=== PATIENT | female | born 1985 | race Caucasian/White ===

== ENCOUNTER 2016-07-30 19:11 | Emergency (ER) | payer MEDICAID ==
[~2016-07-30] VITALS: Ht 162.6 cm; Wt 73.0 kg
[~2016-07-30 19:11] MED LIST: BENZ1LOZ52 MM; CIPR500S2 PO; D-ME473S2 PO; IBUP-1542 PO; TRAM50TA2 PO
[2016-07-30 19:15] VITALS: Ht 162.6 cm; Wt 73.0 kg
[2016-07-30] MEDS ORDERED: SOD CHLORIDE 0.9% 1,000 ML IV STA (19:49)
[2016-07-30] MEDS ORDERED: METOCLOPRAMIDE 10 MG INJ IV ONE (20:00)
[2016-07-30 20:20] LABS: ADD SCAN DIFF NO
[2016-07-30 20:21] LABS: BASOPHILS % 0.3 % (0.0-2.0); EOSINOPHILS % 0.4 % (0.0-7.0); HEMOGLOBIN 13.6 g/dl (12.0-16.0); LYMPHOCYTES # 2.2 10^3/ul (0.8-2.9); LYMPHOCYTES % 20.1 % (15.0-51.0); MEAN CORPUSCULAR HEMOGLOBIN 29.5 pg (29.0-33.0); MEAN CORPUSCULAR VOLUME 86.8 fl (82.0-101.0); MEAN PLATELET VOLUME 9.2 fl (7.4-10.4); MONOCYTE # 0.4 10^3/ul (0.3-0.9); NEUTROPHIL # 8.1 10^3/ul (1.6-7.5); NEUTROPHILS % 74.8 % (39.0-77.0); PLATELET COUNT 206 10^3/UL (140-415); RED BLOOD COUNT 4.61 10^6/ul (4.20-5.40); RED CELL DISTRIBUTION WIDTH 12.4 % (11.5-14.5); WHITE BLOOD COUNT 10.9 10^3/ul (4.8-10.8)
[2016-07-30 20:32] LABS: UR BILIRUBIN (Dip) NEGATIVE (NEGATIVE); UR BLOOD (Dip) NEGATIVE (NEGATIVE); UR CLARITY CLEAR (CLEAR); UR COLOR YELLOW (YELLOW); UR GLUCOSE (Dip) NEGATIVE (NEGATIVE); UR KETONES (Dip) 15 (NEGATIVE); UR LEUKOCYTE ESTERASE (Dip) NEGATIVE (NEGATIVE); UR NITRITE (Dip) NEGATIVE (NEGATIVE); UR UROBILINOGEN (Dip) 0.2 E.U./dL (0.1-1.0)
[2016-07-30 20:41] LABS: ALBUMIN 4.8 g/dl (3.3-4.9); ALBUMIN/GLOBULIN RATIO 1.45; BILIRUBIN,INDIRECT 0.3 mg/dl (0-1.1); BILIRUBIN,TOTAL 0.3 mg/dl (0.2-1.3); CALCIUM 9.8 mg/dl (8.4-10.2); CREATININE 0.62 mg/dl (0.44-1.00); POTASSIUM 3.9 mmol/L (3.5-5.1); TOTAL PROTEIN 8.1 g/dl (6.1-8.1)
--- NOTE | 2016-07-30 20:41 | RADRPT ---
PROCEDURE: US Obstetric less than 14 weeks. CLINICAL INDICATION: , pelvic pain TECHNIQUE: Transabdominal imaging of the pelvis was performed. Images are reviewed on a high-reso [employer] PACS workstation. COMPARISON: None available FINDINGS: Single intrauterine gestation is identified. heart rate is 163 bpm. [place]-rump length = 2.63 cm. Gestational age is 9 weeks 5 days and GABBY is 02/27/2017 by ultrasound criteria. The ovaries are obscured by bowel gas. No adnexal mass or pelvic free fluid is identified. IMPRESSION: 1. Single live intrauterine with an estimated gestational age of 9 weeks 5 days by ultras ound criteria, as above. RPTAT: HH .Farrukh Caal MD, MD Date Time Electronically viewed and signed by .Farrukh Caal MD, on 07/30/2016 20:41 .R/
[2016-07-30 21:13] LABS: ADD UMIC NO
[2016-07-30 21:14] LABS: UR TOTAL PROTEIN (Dip) NEGATIVE (NEGATIVE)
[2016-07-30] MEDS ORDERED: ACET325T33 PO (22:07)
--- NOTE | 2016-07-30 23:31 | ERD ---
ER Documentation Chief Complaint Date/Time DATE: 07/30/16 TIME: 23:28 Chief Complaint 9 weeks , pelvic pain x 1 day HPI 31-year-old female patient who is a presents to the ED complaining of lower pelvic pain that started earlier today. Reports that she had a few episodes of nonbilious nonbloody vomiting. States that her last menses was on June 04, 2016. States that she is not sure of the CORPORATE SECURITIES RESEARCH ANALYST's name. Denies any vaginal bleeding, vaginal discharge, abdominal pain, diarrhea, chest pain, shortness of breath, wheezing. ROS All systems reviewed and are negative except as per history of present illness. Medications Home Meds Active Scripts Acetaminophen* (Tylenol*) 325 Mg Tablet, 1 TAB PO Q6 Y for PAIN AND OR ELEVATED TEMP, #20 TAB Prov:NANCY BARRON PA-C 07/30/16 Ciprofloxacin (Ciprofloxacin) 500 Mg/5 Ml Cindy.mc.rec, 500 MG PO BID for 7 Days, #14 TAB Prov:CHAITANYA RAMIREZ MD 01/01/16 Tramadol HCl (Tramadol HCl) 50 Mg Tablet, 50 MG PO Q4 Y for PAIN, #20 TAB Prov:CHAITANYA RAMIREZ MD 01/01/16 Ibuprofen* (Motrin*) 600 Mg Tab, 600 MG PO Q6, #20 TAB Prov:CHAITANYA RAMIREZ MD 01/01/16 Benzocaine/Menthol* (Cepacol* Sore Throat Lozenges) 1 Each Lozenge, 1 EACH MM q2h Y for SORE THROAT, #30 LOZENGE Prov:COREY ROY PA-C 12/20/15 Dextromethorphan Hb-Promethazine Hcl* (Promethazine DM* Syrup) 473 Ml Syrup, 5 ML PO Q6 Y for COUGH, #120 ML Prov:COREY ROY PA-C 12/20/15 Ibuprofen* (Motrin*) 600 Mg Tab, 600 MG PO Q6, #30 TAB Prov:COREY ROY PA-C 12/20/15 Allergies Allergies: Coded Allergies: No Known Allergy (Unverified , 10/06/11) NKDA PMhx/Soc Medical and Surgical Hx: pt denies Medical Hx History of Surgery: Yes (C-SEC) Anesthesia Reaction: No Hx Neurological Disorder: No Hx Respiratory Disorders: No Hx Cardiac Disorders: No Hx Psychiatric Problems: No Hx Miscellaneous Medical Probl: No Hx Alcohol Use: No Hx Substance Use: No Hx Tobacco Use: No Smoking Status: Never smoker Physical Exam Vitals Vital Signs Date Time Temp Pulse Resp B/P Pulse Ox O2 Delivery O2 Flow Rate FiO2 07/30/16 19:15 98.5 77 20 125/67 99 Physical Exam Const: [id number]-gndiqtzki, well-nourished. In no acute distress. Head: Atraumatic, normocephalic Eyes: Normal Conjunctiva without injection. No purulent discharge. ENT: Normal external ear, nose. Moist oropharynx without tonsillar exudates. Non -erythematous pharynx. Uvula midline. No drooling. No trismus. Neck: No cervical midline tenderness. Full range of motion. No meningismus. No cervical lymphadenopathy. No JVD. Resp: Clear to auscultation bilaterally. No wheezing, rhonchi, rales, or crackles. No accessory muscle use. No retractions. Cardio: Regular rate and rhythm. No murmurs, rubs or gallops. Abd: Soft, right and left pelvic tenderness to palpation, non distended. Normal bowel sounds. No palpable masses. No rebound tenderness. No guarding. Negative McBurney's point. Negative psoas sign. Negative obturator sign. Skin: No petechiae or rashes Back: No midline tenderness. No CVA tenderness. Ext: No cyanosis, or edema. Neur: Awake and alert. Normal gait. Normal coordination. Psych: Normal Mood and Affect Results 24 hrs Laboratory Tests Test 07/30/16 20:05 White Blood Count 10.910^3/ul Red Blood Count 4.6110^6/ul Hemoglobin 13.6g/dl Hematocrit 40.0% Mean Corpuscular Volume 86.8fl Mean Corpuscular Hemoglobin 29.5pg Mean Corpuscular Hemoglobin Concent 34.0g/dl Red Cell Distribution Width 12.4% Platelet Count 78138^3/UL Mean Platelet Volume 9.2fl Neutrophils % 74.8% Lymphocytes % 20.1% Monocytes % 4.0% Eosinophils % 0.4% Basophils % 0.3% Nucleated Red Blood Cells % 0.0/100WBC Neutrophils # 8.110^3/ul Lymphocytes # 2.210^3/ul Monocytes # 0.410^3/ul Eosinophils # 0.010^3/ul Basophils # 0.010^3/ul Nucleated Red Blood Cells # 0.010^3/ul Urine Color YELLOW Urine Clarity CLEAR Urine pH 6.0 Urine Specific [place] 1.020 Urine Ketones 15 Urine Nitrite NEGATIVE Urine Bilirubin NEGATIVE Urine Urobilinogen 0.2 E.U./dL Urine Leukocyte Esterase NEGATIVE Urine Hemoglobin NEGATIVE Urine Glucose NEGATIVE% Urine Total Protein NEGATIVE Sodium Level 137mmol/L Potassium Level 3.9mmol/L Chloride Level 103mmol/L Carbon Dioxide Level 25mmol/L Anion Gap 13 Blood Urea Nitrogen 12mg/dl Creatinine 0.62mg/dl Glucose Level 88mg/dl Calcium Level 9.8mg/dl Total Bilirubin 0.3mg/dl Direct Bilirubin 0.00mg/dl Indirect Bilirubin 0.3mg/dl Aspartate Amino Transf (AST/SGOT) 23IU/L Alanine Aminotransferase (ALT/SGPT) 25IU/L Alkaline Phosphatase 69IU/L Total Protein 8.1g/dl Albumin 4.8g/dl Globulin 3.30g/dl Albumin/Globulin Ratio 1.45 Beta HCG, Quantitative 894690.0mIU/ml Current Medications Medications (Trade) Dose Ordered Sig/Iliana Route PRN Reason Start Time Stop Time Status Last Admin Dose Admin Sodium Chloride (NS) 1,000 ml @ 1,000 mls/hr Q1H STAT IV 07/30/16 19:49 07/30/16 20:48 DC 07/30/16 20:31 Metoclopramide HCl (Reglan) 10 mg ONCE ONCE IV 07/30/16 20:00 07/30/16 20:01 DC 07/30/16 20:31 Procedures/MDM This is a 31-year-old female patient who is a presents to the ED complaining of lower pelvic pain that started earlier today. Patient is afebrile and nontoxic-appearing. Patient has normal vital signs. An ultrasound , beta-hCG, CBC, type and RH, UA was ordered to evaluate patient. CBC: No evidence of severe infection or anemia Urine: No elevation in nitrites, leukocyte esterase, hematuria. No evidence of UTI Rh: O positive. No indication for Rhogam at this time. beta Hc PROCEDURE: US Obstetric less than 14 weeks. CLINICAL INDICATION: , pelvic pain TECHNIQUE: Transabdominal imaging of the pelvis was performed. Images are reviewed on a high-resolution PACS workstation. COMPARISON: None available FINDINGS: Single intrauterine gestation is identified. heart rate is 163 bpm. [place]-rump length = 2.63 cm. Gestational age is 9 weeks 5 days and GABBY is 02/27/2017 by ultrasound criteria. The ovaries are obscured by bowel gas. No adnexal mass or pelvic free fluid is identified. IMPRESSION: 1. Single live intrauterine with an estimated gestational age of 9 weeks 5 days by ultrasound criteria, as above. Patient has a single IUP estimated to be 9 weeks and 5 days. Low suspicion for symptomatic anemia, ectopic , sepsis, PID, appendicitis, ovarian torsion, tubo-ovarian abscess, surgical abdomen, or other emergent conditions. Patient was educated that there is a risk for threatened . Discharge medications: Tylenol Patient to follow up with CORPORATE SECURITIES RESEARCH ANALYST in 2 days for further evaluation and treatment. Patient is to return sooner to the ED for any worsening symptoms. Patient's questions were answered. Patient understood and agreed with discharge plan. Departure Diagnosis: Primary Impression: Pelvic pain during Condition: Stable Patient Instructions: : Your First Trimester Changes, Adapting to : First Trimester Referrals: COMMUNITY CLINICS YOU HAVE RECEIVED A MEDICAL SCREENING EXAM AND THE RESULTS INDICATE THAT YOU DO NOT HAVE A CONDITION THAT REQUIRES URGENT TREATMENT IN THE EMERGENCY DEPARTMENT. FURTHER EVALUATION AND TREATMENT OF YOUR CONDITION CAN WAIT UNTIL YOU ARE SEEN IN YOUR DOCTORS OFFICE WITHIN THE NEXT 1-2 DAYS. IT IS YOUR RESPONSIBILITY TO MAKE AN APPOINTMENT FOR FOLOW-UP CARE. IF YOU HAVE A PRIMARY DOCTOR --you should call your primary doctor and schedule an appointment IF YOU DO NOT HAVE A PRIMARY DOCTOR YOU CAN CALL OUR PHYSICIAN REFERRAL HOTLINE AT IF YOU CAN NOT AFFORD TO SEE A PHYSICIAN YOU CAN CHOSE FROM THE FOLLOWING [facility] [address] [facility] [address] [facility]. [facility] [address] [facility] [address] [facility] [address] [facility]. [facility] [address] [facility]. [facility] YOU HAVE RECEIVED A MEDICAL SCREENING EXAM AND THE RESULTS INDICATE THAT YOU DO NOT HAVE A CONDITION THAT REQUIRES URGENT TREATMENT IN THE EMERGENCY DEPARTMENT. FURTHER EVALUATION AND TREATMENT OF YOUR CONDITION CAN WAIT UNTIL YOU ARE SEEN IN YOUR DOCTORS OFFICE WITHIN THE NEXT 1-2 DAYS. IT IS YOUR RESPONSIBILITY TO MAKE AN APPOINTMENT FOR FOLOW-UP CARE. IF YOU HAVE A PRIMARY DOCTOR --you should call your primary doctor and schedule and appointment IF YOU DO NOT HAVE A PRIMARY DOCTOR YOU CAN CALL OUR PHYSICIAN REFERRAL HOTLINE AT . IF YOU CAN NOT AFFORD TO SEE A PHYSICIAN YOU CAN CHOSE FROM THE FOLLOWING [facility] INSTITUTIONS: [facility] [address] [place] [address] [facility] [address] [place] [address] [facility] [address] [place] [address] CORPORATE SECURITIES RESEARCH ANA[place] [address] [facility] [address] [place] [address] [address] [place], [place] [id number] [facility] [address] [place] [address] ANA [address] [address] [facility], [address], [facility] [address] [address] [place], [place] [id number] [facility] [address] [place], [place] [address] [address] [facility] [address] - MARIA G MAHAN [address], [facility] [address] [address], [place] [address] [facility]. [address], [place] [address] [address] [address] [place] [address] [facility] Hours: 8:00 am - 5:00 pm Additional Instructions: Call your primary care doctor TOMORROW for a referral to see a CORPORATE SECURITIES RESEARCH ANALYST in 2 days.See the doctor sooner or return here if your condition worsens before your appointment time. NANCY BARRON PA-C Jul 30, 2016 23:31 appointment time. NANCY BARRON PA-C Jul 30, 2016 23:31
== END 2016-07-30 22:09 | disposition home or self-care (01) ==
LOC: FTE 19:11
DX: O26.891 Other specified pregnancy related conditions, first trimester (principal); R10.2 Pelvic and perineal pain; Z3A.09 9 weeks gestation of pregnancy
CPT/HCPCS: 36415; 76801; 76817; 80053; 81003; 84702; 85025; 86900; 86901; 96374; J2765; J7030; Z7502

== ENCOUNTER 2016-10-04 15:39 | Emergency (ER) | payer MEDICAID ==
[~2016-10-04] VITALS: Wt 75.0 kg
[~2016-10-04 15:39] MED LIST changes: +ACET325T33 PO
[2016-10-04] MEDS ORDERED: ACETAMINOPHEN 325 MG TAB PO STA (16:17)
[2016-10-04] MEDS ORDERED: SOD CHLORIDE 0.9% 1,000 ML IV STA (16:17)
[2016-10-04 17:15] LABS: BASOPHILS % 0.3 % (0.0-2.0); EOSINOPHILS # 0.1 10^3/ul (0.0-0.5); EOSINOPHILS % 0.9 % (0.0-7.0); HEMATOCRIT 34.5 % (37.0-47.0); LYMPHOCYTES # 1.7 10^3/ul (0.8-2.9); LYMPHOCYTES % 17.6 % (15.0-51.0); MEAN CORPUSCULAR HGB CONC 34.8 g/dl (32.0-37.0); MEAN CORPUSCULAR VOLUME 89.1 fl (82.0-101.0); MEAN PLATELET VOLUME 8.5 fl (7.4-10.4); MONOCYTE # 0.4 10^3/ul (0.3-0.9); MONOCYTES % 4.1 % (0.0-11.0); NEUTROPHILS % 76.7 % (39.0-77.0); PLATELET COUNT 186 10^3/UL (140-415); RED BLOOD COUNT 3.87 10^6/ul (4.20-5.40); RED CELL DISTRIBUTION WIDTH 13.4 % (11.5-14.5); WHITE BLOOD COUNT 9.7 10^3/ul (4.8-10.8)
[2016-10-04 17:19] LABS: ADD UMIC YES; UR ASCORBIC ACID NEGATIVE (NEGATIVE); UR BACTERIA FEW /HPF (NONE SEEN); UR BILIRUBIN (Dip) NEGATIVE (NEGATIVE); UR BLOOD (Dip) 3+ mg/dL (NEGATIVE); UR CLARITY CLEAR (CLEAR); UR COLOR YELLOW (YELLOW); UR GLUCOSE (Dip) NEGATIVE (NEGATIVE); UR KETONES (Dip) 1+ mg/dL (NEGATIVE); UR LEUKOCYTE ESTERASE (Dip) NEGATIVE Leu/ul (NEGATIVE); UR NITRITE (Dip) NEGATIVE (NEGATIVE); UR RBC 11 /HPF (0-5); UR TOTAL PROTEIN (Dip) NEGATIVE (NEGATIVE); UR UROBILINOGEN (Dip) NEGATIVE (NEGATIVE)
--- NOTE | 2016-10-04 17:26 | RADRPT ---
PROCEDURE: US Retroperitoneum. CLINICAL INDICATION: Right flank pain. TECHNIQUE: Multiple sonographic images of the retroperitoneum were obtained. Evaluation of the ki dneys and bladder was performed as well as visualization of the aorta and other retroperitoneal stru ctures using a curved array transducer. The images were reviewed on a PACS workstation. COMPARISON: 01/01/2016 FINDINGS: The kidneys are well visualized. The right kidney measures 10.1 cm in length. The left kidney measu res 10.5 cm in length. There is mild to moderate right-sided hydronephrosis. Multiple small echogen ic focal air present within the right kidney measuring up to 2 mm in diameter. The left kidney is u nremarkable. No perinephric fluid collection is seen. The bladder is unremarkable. IMPRESSION: 1. Mild to moderate right-sided hydronephrosis. 2. Scattered small echogenic foci within the right kidney measuring up to 2 mm in diameter, likely representing nonobstructive intrarenal calculi. RPTAT: JJ .Best Castellon MD, Date Time Electronically viewed and signed by .Best Castellon MD, on 10/04/2016 17:26 .A/
--- NOTE | 2016-10-04 18:11 | RADRPT ---
PROCEDURE: Obstetrical ultrasound CLINICAL INDICATION: R flank pain/ TECHNIQUE: Multiple sonographic images of the pelvis were obtained. The images were reviewed on a PACS workstation. COMPARISON: None LMP: 07/06/2016 FINDINGS: Dynamic changes are seen at the cervix with funneling of the internal cervical os noted at the begin juan of the study although it resolved by the end of the examination. There is a single viable intrauterine gestation. Cardiac activity is present with 139 beats per minute. There is a variable presentation. The placenta is posterior. There is no evidence for an abruption or placenta previa. There is a normal amount of amniotic fluid with maximum vertical pocket of amniotic fluid measuring 5.1 cm. Measurements were made in order to determine age. The results are as follows (cm): BPD =4.43 HC =15.81 AC =14.64 FL =2.87 Estimated gestational age by ultrasound of approximately 19 weeks, 2 days. The estimated date of delivery by ultrasound is 02/26/2017. Estimated gestational age by LMP of approximately 12 weeks, 6 days. The estimated date of delivery by LMP is 04/12/2017. EFW = 287 grams (above the 97th percentile) IMPRESSION: Single viable intrauterine gestation of approximately 19 weeks, 2 days . The estimated date of delivery is 02/26/2017 . Dating by ultrasound is not consistent with dating by LMP. Cephalic presentation. Posterior placenta without evidence of an abruption or placenta previa. Changes are noted at the cervix with funneling of the internal cervical os seen at the beginning of the study although a resolved by the end of the examination. Normal amount of amniotic fluid. Estimated weight is 287 g. RPTAT: EE Physician Allyn Date Time Electronically viewed and signed by Dez Mcnamara Physician on 10/04/2016 18:10 RA/
[2016-10-04 18:48] VITALS: BP 122/67; PULSE 81; RESP 18; TEMP 98
--- NOTE | 2016-10-04 20:37 | ERD ---
ER Documentation Chief Complaint Date/Time DATE: 10/04/16 TIME: 20:29 Chief Complaint LOWER ABD CRAMPING, PT PGT, EDC 03-01-17, NO VB HPI This patient is a 31-year-old female presenting to the emergency department with complaints of bilateral lower abdominal cramping which onset suddenly yesterday. She is currently Ab0 LC 3. Last menstrual cycle was July 06, 2016. Associated symptoms include right flank pain. Pain is currently 9 out of 10. Aggravated with standing. Alleviated with nothing. She denies vaginal bleeding, vaginal discharge, nausea, vomiting hematuria, fevers, chills, or other symptoms. ROS All systems reviewed and are negative except as per history of present illness. Medications Home Meds Active Scripts Acetaminophen* (Tylenol*) 325 Mg Tablet, 1 TAB PO Q6 Y for PAIN AND OR ELEVATED TEMP, #20 TAB Prov:NANCY BARRON PA-C 07/30/16 Ciprofloxacin (Ciprofloxacin) 500 Mg/5 Ml Cindy..rec, 500 MG PO BID for 7 Days, #14 TAB Prov:CHAITANYA RAMIREZ MD 01/01/16 Tramadol HCl (Tramadol HCl) 50 Mg Tablet, 50 MG PO Q4 Y for PAIN, #20 TAB Prov:CHAITANYA RAMIREZ MD 01/01/16 Ibuprofen* (Motrin*) 600 Mg Tab, 600 MG PO Q6, #20 TAB Prov:CHAITANYA RAMIREZ MD 01/01/16 Benzocaine/Menthol* (Cepacol* Sore Throat Lozenges) 1 Each Lozenge, 1 EACH MM q2h Y for SORE THROAT, #30 LOZENGE Prov:COREY ROY PA-C 12/20/15 Dextromethorphan Hb-Promethazine Hcl* (Promethazine DM* Syrup) 473 Ml Syrup, 5 ML PO Q6 Y for COUGH, #120 ML Prov:COREY ROY PA-C 12/20/15 Ibuprofen* (Motrin*) 600 Mg Tab, 600 MG PO Q6, #30 TAB Prov:COREY ROY PA-C 12/20/15 Allergies Allergies: Coded Allergies: No Known Allergy (Unverified , 10/04/16) NKDA PMhx/Soc History of Surgery: Yes (C-SEC) Anesthesia Reaction: No Hx Neurological Disorder: No Hx Respiratory Disorders: No Hx Cardiac Disorders: No Hx Psychiatric Problems: No Hx Miscellaneous Medical Probl: Yes (KIDNEY STONE) Hx Alcohol Use: No Hx Substance Use: No Hx Tobacco Use: No Smoking Status: Never smoker Physical Exam Vitals Vital Signs Date Time Temp Pulse Resp B/P Pulse Ox O2 Delivery O2 Flow Rate FiO2 10/04/16 18:48 98.0 81 18 122/67 99 Room Air 10/04/16 15:40 97.3 84 18 117/59 99 Physical Exam Const: Nontoxic, well-appearing female in no acute distress. Head: Atraumatic Eyes: Normal Conjunctiva ENT: Normal External Ears, Nose and Mouth. Neck: Full range of motion..~ No meningismus. Resp: Clear to auscultation bilaterally Cardio: Regular rate and rhythm, no murmurs Abd: Soft, non tender, non distended. Normal bowel sounds. Bilateral suprapubic tenderness to palpation which is mild. Skin: No petechiae or rashes Back: Right-sided flank tenderness on palpation. Ext: No cyanosis, or edema Neur: Awake and alert Psych: Normal Mood and Affect Result Diagram: 10/04/16 1705 Results 24 hrs Laboratory Tests Test 10/04/16 17:05 White Blood Count 9.710^3/ul Red Blood Count 3.8710^6/ul Hemoglobin 12.0g/dl Hematocrit 34.5% Mean Corpuscular Volume 89.1fl Mean Corpuscular Hemoglobin 31.0pg Mean Corpuscular Hemoglobin Concent 34.8g/dl Red Cell Distribution Width 13.4% Platelet Count 28371^3/UL Mean Platelet Volume 8.5fl Neutrophils % 76.7% Lymphocytes % 17.6% Monocytes % 4.1% Eosinophils % 0.9% Basophils % 0.3% Nucleated Red Blood Cells % 0.0/100WBC Neutrophils # (Manual) 710^3/ul Lymphocytes # 1.710^3/ul Monocytes # 0.410^3/ul Eosinophils # 0.110^3/ul Basophils # 0.010^3/ul Nucleated Red Blood Cells # 0.010^3/ul Urine Color YELLOW Urine Clarity CLEAR Urine pH 6.0 Urine Specific [place] 1.010 Urine Ketones 1+mg/dL Urine Nitrite NEGATIVEmg/dL Urine Bilirubin NEGATIVEmg/dL Urine Urobilinogen NEGATIVEmg/dL Urine Leukocyte Esterase NEGATIVELeu/ul Urine Microscopic RBC 11/HPF Urine Microscopic WBC 2/HPF Urine Bacteria FEW/HPF Urine Hemoglobin 3+mg/dL Urine Glucose NEGATIVEmg/dL Urine Total Protein NEGATIVEmg/dl Beta HCG, Quantitative 29532.0mIU/ml Current Medications Medications (Trade) Dose Ordered Sig/Iliana Route PRN Reason Start Time Stop Time Status Last Admin Dose Admin Sodium Chloride (NS) 1,000 ml @ 1,000 mls/hr Q1H STAT IV 10/04/16 16:17 10/04/16 17:16 DC 10/04/16 17:11 Acetaminophen (Tylenol Tab) 650 mg ONCE STAT PO 10/04/16 16:17 10/04/16 16:20 DC 10/04/16 17:11 Procedures/MDM EMERGENCY DEPARTMENT COURSE / MEDICAL DECISION MAKING: This is a 31-year-old female who comes to the emergency room secondary to complaints of right flank pain and bilateral suprapubic pain. The patient was given IV fluids and p.o. Tylenol in the department. The patient passed a kidney stone in the department and it was sent for calculus analysis. On re-evaluation, the patient was feeling improved. Lab results reviewed. CBC: No significant acute abnormalities UA: Not concerning for urinary tract infection. Radiology: PROCEDURE: Obstetrical ultrasound CLINICAL INDICATION: R flank pain/ TECHNIQUE: Multiple sonographic images of the pelvis were obtained. The images were reviewed on a PACS workstation. COMPARISON: None LMP: 07/06/2016 FINDINGS: Dynamic changes are seen at the cervix with funneling of the internal cervical os noted at the beginning of the study although it resolved by the end of the examination. There is a single viable intrauterine gestation. Cardiac activity is present with 139 beats per minute. There is a variable presentation. The placenta is posterior. There is no evidence for an abruption or placenta previa. There is a normal amount of amniotic fluid with maximum vertical pocket of amniotic fluid measuring 5.1 cm. Measurements were made in order to determine age. The results are as follows (cm): BPD = 4.43 HC = 15.81 AC = 14.64 FL = 2.87 Estimated gestational age by ultrasound of approximately 19 weeks, 2 days. The estimated date of delivery by ultrasound is 02/26/2017. Estimated gestational age by LMP of approximately 12 weeks, 6 days. The estimated date of delivery by LMP is 04/12/2017. EFW = 287 grams (above the 97th percentile) IMPRESSION: Single viable intrauterine gestation of approximately 19 weeks, 2 days . The estimated date of delivery is 02/26/2017 . Dating by ultrasound is not consistent with dating by LMP. Cephalic presentation. Posterior placenta without evidence of an abruption or placenta previa. Changes are noted at the cervix with funneling of the internal cervical os seen at the beginning of the study although a resolved by the end of the examination. Normal amount of amniotic fluid. Estimated weight is 287 g. RPTAT: EE Physician Allyn Date Time Electronically viewed and signed by Physician Allyn on 10/04/2016 18:10 PROCEDURE: US Retroperitoneum. CLINICAL INDICATION: Right flank pain. TECHNIQUE: Multiple sonographic images of the retroperitoneum were obtained. Evaluation of the kidneys and bladder was performed as well as visualization of the aorta and other retroperitoneal structures using a curved array transducer. The images were reviewed on a PACS workstation. COMPARISON: 01/01/2016 FINDINGS: The kidneys are well visualized. The right kidney measures 10.1 cm in length. The left kidney measures 10.5 cm in length. There is mild to moderate right- sided hydronephrosis. Multiple small echogenic focal air present within the right kidney measuring up to 2 mm in diameter. The left kidney is unremarkable. No perinephric fluid collection is seen. The bladder is unremarkable. IMPRESSION: 1. Mild to moderate right-sided hydronephrosis. 2. Scattered small echogenic foci within the right kidney measuring up to 2 mm in diameter, likely representing nonobstructive intrarenal calculi. RPTAT: JJ .Best Castellon MD, MD Date Time Electronically viewed and signed by .Best Castellon MD, on 10/04/2016 17:26 The primary diagnosis is flank pain. Secondary diagnosis is and not yet delivered I have low suspicion for acute abdomen, obstructing calculus, ectopic , tubo-ovarian abscess, bowel obstruction, sepsis, or other emergent conditions at this time. The patient is feeling much improved in the department after passing a kidney stone. The patient did have hydronephrosis on kidney ultrasound, which was most likely secondary to the stone which she passed. Transabdominal OB ultrasound showed a single live intrauterine of approximately 19 weeks. Beta hCG was consistent with the term of . Discharge: I have discussed the lab results and diagnostic findings with the patient and answered any questions or concerns. The patient was stable to be discharged home with close follow-up with her RESEARCH PROGRAM MANAGER/PCP. The patient was advised to followup with their PMD in 1-2 days and to return to the Emergency Department if there are any new or worsening symptoms. The patient understood and agreed with the diagnosis, treatment and plan. The patient is stable for discharge at this time. Departure Diagnosis: Primary Impression: Flank pain Additional Impression: and not yet delivered Condition: Fair Patient Instructions: Flank Pain, Uncertain Cause Additional Instructions: Follow up with your PCP within the next 1-3 days for a repeat evaluation. If you require a referral to a specialist, your Primary Care Provider may be able to provide this for you. In most patient cases, a referral is not required. If you have further questions regarding this matter, please ask your Primary Care Provider. Return the the emergency department immediately if symptoms worsen or change. If you have any questions regarding medications, ask your pharmacist or us before you leave. If any adverse reactions, occur while taking your medications, discontinue the treatment and return to the emergency department immediately. If any new or worsening symptoms, uncontrolled fevers, or other unexplained symptoms occur, return to the emergency department immediately. Take your medications as directed, and complete the entire course of treatment. RADHA SERNA PA-C Oct 04, 2016 20:36
== END 2016-10-04 19:00 | disposition home or self-care (01) ==
LOC: FTE 15:39
DX: O26.892 Other specified pregnancy related conditions, second trimester (principal); R10.31 Right lower quadrant pain; R10.32 Left lower quadrant pain; R10.2 Pelvic and perineal pain; Z3A.19 19 weeks gestation of pregnancy
CPT/HCPCS: 36415; 76775; 76805; 81001; 82355; 84702; 85025; 86900; 86901; J7030; Z7502; Z7610

== ENCOUNTER 2017-02-25 13:18 | Inpatient (IN) | END 2017-02-27 16:40 | disposition home or self-care (01) | DRG 775 ==

== ENCOUNTER 2018-06-15 09:06 | Emergency (ER) | payer MEDICAID ==
[~2018-06-15] VITALS: Ht 154.9 cm; Wt 89.2 kg
[~2018-06-15 09:06] MED LIST changes: -ACET325T33 PO; -BENZ1LOZ52 MM; -CIPR500S2 PO; -D-ME473S2 PO; -TRAM50TA2 PO
[2018-06-15 09:25] VITALS: BP 110/65; PULSE 91; RESP 18; Ht 154.9 cm; Wt 89.2 kg
--- NOTE | 2018-06-15 10:52 | ERD ---
ER Documentation Chief Complaint Chief Complaint painful rash left wrist area x1wk getting bigger HPI 33-year-old female presenting with rash to left wrist x1 week. She states the rash is very itchy and appears to be spreading. She does not have pain. Has not use medications on the area. Patient is was concerned about medication she would be able to use. She denies anyone else in her home having rash. Denies any fevers. Denies pain. Denies medical problems. NKDA. Surgical history denies. Social history denies ROS All systems reviewed and are negative except as per history of present illness. Medications Home Meds Active Scripts Ibuprofen* (Motrin*) 600 Mg Tab, 600 MG PO Q6, #20 TAB Prov:CHAITANYA RAMIREZ MD 01/01/16 Allergies Allergies: Coded Allergies: No Known Allergy (Unverified , 10/04/16) NKDA PMhx/Soc History of Surgery: Yes (C-SEC) Anesthesia Reaction: No Hx Neurological Disorder: No Hx Respiratory Disorders: No Hx Cardiac Disorders: No Hx Psychiatric Problems: No Hx Miscellaneous Medical Probl: Yes (KIDNEY STONE) Hx Alcohol Use: No Hx Substance Use: No Hx Tobacco Use: No FmHx Family History: No diabetes, No coronary disease, No other Physical Exam Vitals Vital Signs Date Temp Pulse Resp B/P (MAP) Pulse Ox O2 O2 Flow FiO2 Time Delivery Rate 06/15/18 98.0 91 18 110/65 100 09:25 (80) Physical Exam GENERAL: The patient is well-appearing, well-nourished, in no acute distress CHEST: Clear to auscultation bilaterally. There are no rales, wheezes or rhonchi. HEART: Regular rate and rhythm. No murmurs, clicks, rubs or gallops. EXTREMITIES: Equal pulses bilaterally. There is no peripheral clubbing, cyanosis or edema. No focal swelling or erythema. Full range of motion. Grossly neurovascularly intact. NEUROLOGIC: Alert and oriented. Cranial nerves II through XII intact. Motor strength in all 4 extremities with 5 out of 5 strength. Sensation grossly intact. Normal speech and gait. SKIN: Erythema with irritation noted to the left wrist area no vesicles or pustules. Procedures/MDM MDM: 33-year-old female presenting with rash. Patient's rash appears to be contact dermatitis. Hydrocortisone is category C in so I will avoid using. Patient is recommended to cover it to prevent from further spreading. I have low suspicion for bacterial or viral infection. Patient is discharged with strict ER precautions. All questions answered at discharge Departure Diagnosis: Primary Impression: Contact dermatitis Condition: Stable Patient Instructions: Contact Dermatitis Referrals: [facility] YOU HAVE RECEIVED A MEDICAL SCREENING EXAM AND THE RESULTS INDICATE THAT YOU DO NOT HAVE A CONDITION THAT REQUIRES URGENT TREATMENT IN THE EMERGENCY DEPARTMENT. FURTHER EVALUATION AND TREATMENT OF YOUR CONDITION CAN WAIT UNTIL YOU ARE SEEN IN YOUR DOCTORS OFFICE WITHIN THE NEXT 1-2 DAYS. IT IS YOUR RESPONSIBILITY TO MAKE AN APPOINTMENT FOR FOLOW-UP CARE. IF YOU HAVE A PRIMARY DOCTOR --you should call your primary doctor and schedule an appointment IF YOU DO NOT HAVE A PRIMARY DOCTOR YOU CAN CALL OUR PHYSICIAN REFERRAL HOTLINE AT IF YOU CAN NOT AFFORD TO SEE A PHYSICIAN YOU CAN CHOSE FROM THE FOLLOWING [facility] [address]. [facility] [address] [employer] [facility] [address] [facility] [address] [facility] [address] [facility]. [facility]. [address] Additional Instructions: FOLLOW UP WITH YOUR PRIMARY CARE PHYSICIAN TOMORROW.Return to this facility if you are not improving as expected. NEY GAFFNEY PA-C Jun 15, 2018 10:52
== END 2018-06-15 11:06 | disposition home or self-care (01) ==
LOC: FTE 09:06
DX: L25.9 Unspecified contact dermatitis, unspecified cause (principal)
CPT/HCPCS: 99282